=== PATIENT | male | born 1945 | race Caucasian/White ===

== ENCOUNTER → 2019-10-03 | Day surgery (SDC) | payer MEDICARE ==
[2019-09-29 16:22] VITALS: BMI 21.1
[~2019-10-03] MED LIST: ALPRAZolam 0.25 MG TAB PO PRN; ALPRAZolam 0.5 MG TAB PO PRN; ASPIRIN 325 MG TAB PO ONE; ASPIRIN 81 MG PO SCH; ATORVASTATIN 80 MG TAB PO ONE; ATROPINE SULFATE 0.1 MG/ML 10ML SYRINGE IV PRN; BIVALIRUDIN 250 MG in SODIUM CHLORIDE 0.9% 50 ML IV ONE; BIVALIRUDIN BOLUS 250 MG/50 ML IV ONE; IOPAMIDOL-370 100ML BTL INJ ONE; LIDOCAINE 1% INJ 10MG/ML (20 ML MDV) ONE; LIDOCAINE 1% INJ 10MG/ML (20 ML MDV) SQ ONE; MAG HYDROX/AL HYDROX/SIMETH 30 ML CUP PO PRN; MIDAZOLAM 2 MG/2 ML VIAL IV ONE; NITROGLYCERIN 1000MCG/10ML SYRINGE INTRACORON ONE; NITROGLYCERIN SL TABS 0.4 MG TAB SUBLINGUAL ONE; NITROGLYCERIN SL TABS 0.4 MG TAB SUBLINGUAL PRN; RX INFO: IV CONTRAST WAS GIVEN 1 EACH MISC MISCELLANE PRN; SODIUM CHLORIDE 0.9% 1,000 ML IV ONE; SODIUM CHLORIDE 0.9% 1,000 ML IV SCH; SODIUM CHLORIDE 0.9% 1,000 ML in EMPTY BAG 1 BAG IV ONE; TICAGRELOR 90 MG TAB ONE; TICAGRELOR 90 MG TAB PO ONE; TICAGRELOR 90 MG TAB PO SCH; VERAPAMIL 2.5 MG/ML 2 ML AMP ONE; ZOLPIDEM 5 MG TAB PO PRN; amLODIPine 5 MG TAB ONE; amLODIPine 5 MG TAB PO ONE; amLODIPine 5 MG TAB PO SCH
[2019-10-03 11:12] VITALS: TEMP 97.8
--- NOTE | 2019-10-03 12:31 | PTCA ---
PERCUTANEOUSTRANS CORORONARY ANGIOGRAPHY DATE OF SERVICE: 10/03/2019. PROCEDURE: PTCA and stenting of mid circumflex coronary artery with a drug-eluting stent. PERFORMED BY: Dr. Karmen Hernandez. Moderate conscious sedation time was 36 minutes. Patient was administered Versed. Oxygen saturation, hemodynamics and EKG were monitored closely. CLINICAL INFORMATION: Mr. Chuy Hankins is a 74-year-old gentleman with history of hypertension, hyperlipidemia, and an abnormal stress test with symptoms of exertional shortness of breath and chest tightness. There was evidence of inferolateral reversible defect. Cardiac cath on the of this month at [facility] revealed a significant long 90% lesion involving the mid circumflex which was a long lesion. He was advised intervention, brought in for the procedure electively. PROCEDURE NOTE: Under local anesthesia and strict aseptic precautions, a 6-Bengali introducer was placed in the right radial artery. A 3.5 curved left Cholo guide catheter was used to cannulate the left coronary artery. A run-through wire with a steep curve was used to cross the lesion. Predilatation was performed with a 2.25 caliber 15 mm NC Trek balloon. I then deployed a 23 mm long 2.5 caliber Xience stent at 10 atmospheres. Patient did not have chest pain or EKG changes. He had an excellent angiographic result without complication. The sheath was then taken out and TR band applied as per protocol with saturation of the fingers of the right hand of about 97%. He was sent to the room in a stable condition. Results were discussed with the patient and his . He received Angiomax bolus and infusion as per protocol and also received 180 mg of Brilinta orally. I expect the patient to be discharged around 6:30 or 7:00 pm today if he remains stable. He was advised regarding the importance of dual antiplatelet therapy. He will have a CBC, BMP in 48 hours and he will see me on this Wednesday at 2:00 pm. MMODL / IJN: [id number] /
[2019-10-03 14:13] VITALS: RESP 16
[2019-10-03 17:12] VITALS: BP 146/67; PULSE 47
== END ==
LOC: CATHCVL 10:45
PROVIDERS: ATTEND Internal Medicine Interventional Cardiology
DX: I25.10 Atherosclerotic heart disease of native coronary artery without angina pectoris (principal); I49.5 Sick sinus syndrome; I10 Essential (primary) hypertension; E78.5 Hyperlipidemia, unspecified; J44.9 Chronic obstructive pulmonary disease, unspecified; Z77.090 Contact with and (suspected) exposure to asbestos; Z87.891 Personal history of nicotine dependence; Z79.51 Long term (current) use of inhaled steroids; Z79.82 Long term (current) use of aspirin; Z79.899 Other long term (current) drug therapy
CPT/HCPCS: C9600; C1887; C1725; C1769; C1874; J2250; J2001; J0583; Q9967